=== PATIENT | male | born 1990 | race Caucasian/White ===

== ENCOUNTER → 2018-06-16 | Outpatient (CLI) | payer OTHER ==
[~2018-06-16] MED LIST: CALALOT3 TOP; NO HOME MEDICATION; PROZ20CA11 PO; RISP1TAB3 PO
--- NOTE | 2018-06-16 14:39 | REP ---
LUMBAR SPINE, FIVE VIEWS: HISTORY: Back pain. There is no acute fracture or subluxation. The intervertebral discs are normal in height. The facet joints are normal in height. The facet joints are normal in appearance. IMPRESSION: There is no acute fracture or subluxation. Electronically Signed by Lamont Barreto MD 06/16/2018 02:52 P
== END ==
LOC: M WUC 14:05
PROVIDERS: ATTEND Physician Assistant
DX: M54.5 Low back pain (principal)